=== PATIENT | female | born 1965 | race Caucasian/White ===

== ENCOUNTER 2023-06-03 20:43 | Emergency (ER) | payer OTHER ==
[~2023-06-03] VITALS: Ht 160 cm; Wt 74.8 kg
[2023-06-03 20:54] VITALS: BP 144/77; PULSE 100; RESP 18; TEMP 97.7; O2SAT 95
[2023-06-03 21:20] LABS: APPEARANCE,URINE SL CLOUDY (CLEAR); BILIRUBIN,URINE 1+ (NEGATIVE); BLOOD, URINE 3+ (NEGATIVE); COLOR,URINE RED (YELLOW); LEUKOCYTE ESTERASE ,URINE 3+ (NEGATIVE); NITRITE, URINE POSITIVE (NEGATIVE); PROTEIN,URINE 2+ (NEGATIVE); UGLUCOSE NEGATIVE (NEGATIVE)
[2023-06-03 21:28] LABS: RBC,URINE TOO NUMEROUS TO COUN /HPF (0-5)
[2023-06-03 21:29] LABS: BACTERIA,URINE None Seen /HPF (None Seen); SQUAMOUS EPITHELIAL CELL,UR None Seen /LPF (0-3 (FEW)); WBC,URINE NONE SEEN /HPF (0-5)
[2023-06-03 21:31] LABS: ICTOTEST NEGATIVE (NEGATIVE)
[2023-06-03 21:32] VITALS: O2SAT 95
[2023-06-03] MEDS ORDERED: PYR100 PO (21:46)
[2023-06-03] MEDS ORDERED: SULF-59 PO (21:46)
[2023-06-03] MEDS: SULFAMETH/TRIMETH DS 800/160MG 1 TAB PO ONE (22:01)
== END 2023-06-03 22:04 | disposition home or self-care (01) ==
LOC: MED 20:43
DX: N39.0 Urinary tract infection, site not specified (principal); Z88.0 Allergy status to penicillin; Z79.82 Long term (current) use of aspirin; Z79.899 Other long term (current) drug therapy
CPT/HCPCS: 81001; 87086; 99283